=== PATIENT | male | born 1965 | race Two or more races ===

== ENCOUNTER 2017-05-07 06:26 | Emergency (ER) | payer OTHER ==
[~2017-05-07] VITALS: Ht 170.2 cm; Wt 77.1 kg
[2017-05-07 07:21] VITALS: BP 168/99
== END 2017-05-07 07:23 | disposition home or self-care (01) ==
LOC: EDBD 06:26 → ER 06:32
DX: S82.891D Other fracture of right lower leg, subsequent encounter for closed fracture with routine healing (principal); X58.XXXD Exposure to other specified factors, subsequent encounter